=== PATIENT | male | born 2000 | race Caucasian/White ===

== ENCOUNTER 2022-10-01 12:37 | Emergency (ER) | payer OTHER ==
[~2022-10-01] VITALS: Ht 175.3 cm; Wt 86.2 kg
[~2022-10-01 12:37] MED LIST: ALBU90OI INH; AMOCLA400S PO; AZIT250 PO; CEPH500 PO; CODACE30 PO; CODGUAEL PO; Crutch1 EACH MISC; HYDACE5325 PO; Naprosyn500 MG PO
[2022-10-01 13:02] VITALS: BP 146/98
== END 2022-10-01 13:50 | disposition left against medical advice (07) ==
LOC: ER 12:37
DX: M25.562 Pain in left knee (principal); R41.0 Disorientation, unspecified; Z53.21 Procedure and treatment not carried out due to patient leaving prior to being seen by health care provider; V89.2XXA Person injured in unspecified motor-vehicle accident, traffic, initial encounter
CPT/HCPCS: 99283